=== PATIENT | female | born 1965 ===

== ENCOUNTER 2018-03-21 07:56 | Emergency (ER) | payer OTHER, BC ==
[2018-03-21 07:56] VITALS: BMI 34.0
--- NOTE | 2018-03-21 09:04 | C.PDOC ---
History Of Present Illness 52-year-old female, presents to the emergency department with complaints of right shoulder pain ongoing x4 days. Patient notes she saw a trash can falling, and strained her shoulder when trying to hold the trash can up from falling. Pain is worse with movement. She denies direct trauma, chest pain, shortness of breath, change in sensation, change in temperature, swelling, rash, or any other associated symptoms. Time Seen by Provider: 03/21/18 08:06 Chief Complaint (Nursing): Upper Extremity Problem/Injury Past Medical History Reviewed: Historical Data, Nursing Documentation, Vital Signs Family History: States: No Known Family Hx - Social History Hx Alcohol Use: Yes Hx Substance Use: No - Immunization History Hx Tetanus Toxoid Vaccination: No Hx Influenza Vaccination: No Hx Pneumococcal Vaccination: No Review Of Systems Musculoskeletal: Positive for: Shoulder Pain Physical Exam - Physical Exam Appears: Non-toxic, No Acute Distress Skin: Warm, Dry, No Rash Head: Atraumatic Eye(s): bilateral: Normal Inspection Nose: Normal Oral Mucosa: Moist Lips: Normal Appearing Neck: Normal ROM Cardiovascular: Rhythm Regular, No Murmur Respiratory: Normal Breath Sounds, No Accessory Muscle Use Extremity: Tenderness, No Deformity, No Swelling, Other (right shoulder decreased range of motion secondary to pain. Anterior shoulder tender to palpation ) Neurological/Psych: Oriented x3, Normal Speech ED Course And Treatment - Other Rad XR shoulder X-Ray: Interpreted by Me, Viewed By Me Interpretation: +calcification in tendon. No fracture or dislocation Progress Note: XR shoulder ordered and reviewed. Pt treated with Toradol and Flexeril. On re-evaluation, pain imporved. Pt declined sling. Instructed RICE and follow up with PMD in 1-2 days. Disposition - Disposition Referrals: Jone Shultz MD [Staff Provider] - Disposition: HOME/ ROUTINE Disposition Time: 09:01 Condition: STABLE Additional Instructions: Rest, ice and elevate the area. Follow up with the bone doctor in 1-2 days. Prescriptions: Naproxen [Naprosyn] 1 tab PO BID PRN #20 tab PRN Reason: Pain Instructions: Shoulder Sprain (DC) Forms: [facility] ([place]ian), Work Excuse - Clinical Impression Clinical Impression: Calcific tendinitis - Scribe Statement The provider has reviewed the documentation as recorded by the Scribe (Zunaira Gibran) All medical record entries made by the Scribe were at my direction and personally dictated by me. I have reviewed the chart and agree that the record accurately reflects my personal performance of the history, physical exam, medical decision making, and the department course for this patient. I have also personally directed, reviewed, and agree with the discharge instructions and disposition.
[2018-03-21 09:16] VITALS: BP 123/81; PULSE 69; RESP 20; TEMP 97.9; O2SAT 99
--- NOTE | 2018-03-21 09:52 | RAD ---
Date of service: 03/21/2018 PROCEDURE: Radiographs of the Right Shoulder HISTORY: pain COMPARISON: No prior. FINDINGS: BONES: . No fracture. Glenoid fossa subchondral cystic changes. Lateral scapular margin coarse trabecular cortical thickening noted JOINTS: Glenohumeral and acromioclavicular arthrosis SOFT TISSUES: Calcific rotator cuff tendinopathy and/or calcific bursitis suggested. OTHER FINDINGS: None. IMPRESSION: No fracture or lytic lesion. Calcific rotator cuff tendinopathy and/or calcific bursitis suggested. Arthrosis glenohumeral joint most notably affected. Other findings as above.
== END 2018-03-21 09:17 | disposition home or self-care (01) ==
LOC: C.ER 07:56
DX: M75.31 Calcific tendinitis of right shoulder (principal)
CPT/HCPCS: 73030; 96372; 99284; J1885